=== PATIENT | male | born 1990 | race Caucasian/White ===

== ENCOUNTER 2022-06-18 10:16 | Emergency (ER) | payer SELFPAY ==
[2022-06-18 10:27] VITALS: BP 140/103; PULSE 98; RESP 21; TEMP 36.3; O2SAT 98
[2022-06-18 10:41] LABS: Basophils Absolute Auto 0.1 K/mm3 (0.0-0.1); Basophils Percent Auto 1.1 % (0.2-1.2); Eosinophils Absolute Auto 0.2 K/mm3 (0-0.3); Eosinophils Percent Auto 2.2 % (0-4.4); Hematocrit 47.5 % (42.0-52.0); Hemoglobin 16.6 g/dL (14.0-18.0); Immature Granulocyte Absolute 0.02 K/mm3 (0.00-0.031); Immature Granulocyte Percent A 0.2 % (0-0.5); Lymphocytes Percent Auto 50.8 % (18.3-44.2); Mean Corpuscular HGB Conc 34.9 g/dl (32-36); Mean Corpuscular Hemoglobin 32.9 pg (26-34); Mean Corpuscular Volume 94.2 fl (80-100); Mean Platelet Volume 9.2 fl (7.4-10.4); Monocytes Absolute Auto 0.5 K/mm3 (0.1-0.6); Monocytes Percent Auto 6.3 % (2.6-8.5); Neutrophils Absolute Auto 3.3 K/mm3 (1.3-6.7); Neutrophils Percent Auto 39.4 % (45.5-73.1); Platelet Count Result 234 k/mm3 (150-375); Red Blood Count 5.04 M/mm3 (4.6-6.20); Red Cell Distribution Width 12.3 % (11.5-14.5); White Blood Count 8.3 K/mm3 (4.5-10.0)
[2022-06-18 10:53] LABS: Alanine Aminotransferase 56 U/L (6-50); Albumin Level 4.5 g/dL (3.5-5.1); Alkaline Phosphatase 57 U/L (38-126); Anion Gap 10 mmol/L (8-16); Aspartate Amino Transferase 54 U/L (17-59); Bilirubin,Total 0.5 mg/dL (0.2-1.3); Blood Urea Nitrogen 11 mg/dL (9-20); Calcium 8.5 mg/dL (8.4-10.2); Carbon Dioxide 26 mmol/L (22-30); Chloride 103 mmol/L (98-107); Estimated CRCL calculation 145 ml/min; Estimated Glomerular Filt Rate > 60; Glucose 103 mg/dL (65-110); Potassium 3.5 mmol/L (3.4-5.0); Sodium 139 mmol/L (137-145)
[2022-06-18 11:06] LABS: Strep Group A RT-PCR NOT DETECTED (Negative)
[2022-06-18 11:20] LABS: Influenza A QL RT-PCR Negative (Negative); Influenza B QL RT-PCR Negative (Negative); SARS-CoV-2 RNA PCR Negative (Negative)
[2022-06-18 11:55] VITALS: BP 115/64; PULSE 84; RESP 16; O2SAT 98
--- NOTE | 2022-06-18 14:04 | ED.GENADULT ---
HPI - General Adult General Chief complaint: Allergic Reaction Stated complaint: allergic reaction, states throat is closing Time Seen by Provider: 06/18/22 10:19 History of Present Illness HPI narrative: Patient is a 31-year-old male who presents ER with concerns for allergic reaction. Woke up this morning has difficulty breathing and swallowing. He has an irritation back of his throat. Patient does not take any medications. Denies any new food exposures. No runny nose or sore throat or cough. No wheezing. No new rash. Related Data Allergies Allergy/AdvReac Type Severity Reaction Status Date / Time Penicillins Allergy Unknown Verified 06/18/22 11:55 Review of Systems Constitutional: Constitutional: Denies chills, Denies fatigue and Denies fever(s) ENT: Reports dysphagia, Denies nasal congestion and Reports sore throat Respiratory: Respiratory: Denies cough and Denies dyspnea Gastrointestinal: Gastrointestinal: Denies abdominal pain, Denies nausea and Reports vomiting PMFSH Past Medical History Medical History (Updated 06/18/22 @ 20:13 by Marquez Loaiza MD) Healthy adult male Surgical History Surgical History (Updated 06/18/22 @ 20:13 by Marquez Loaiza MD) No history of previous surgery Exam Narrative: GENERAL: Well-appearing, well-nourished, and in no acute distress. HEAD: Normocephalic, atraumatic. EYES: PERRL and EOMI. ENT: Mucous membranes moist. Uvula edematous. Tonsils normal in appearance without hypertrophy or exudate. No uvular shift. CHEST: Clear to auscultation. No respiratory distress. HEART: Regular rate and rhythm. Normal peripheral pulses.. EXTREMITIES: Normal range of motion. No edema. SKIN: Warm, dry, no rash. NEURO: Alert and oriented x3. PSYCH: Normal mood and affect. Course Course Emergency Course: Uvula reducing in size after Decadron. Educated on uvulitis. Discharge home. Vital Signs Vital signs: Vital Signs Temperature 97.4 F L 06/18/22 10:27 Pulse Rate 98 06/18/22 10:27 Respiratory Rate 21 H 06/18/22 10:27 Blood Pressure 140/103 H 06/18/22 10:27 Pulse Oximetry 98 06/18/22 10:27 Temperature 97.4 F L 06/18/22 10:27 Pulse Rate 91 06/18/22 14:14 Respiratory Rate 16 06/18/22 14:14 Blood Pressure 106/71 06/18/22 14:14 Pulse Oximetry 98 06/18/22 14:14 Medical Decision Making Vital Signs Vital Signs: Vital Signs Temperature 97.4 F L 06/18/22 10:27 Pulse Rate 98 06/18/22 10:27 Respiratory Rate 21 H 06/18/22 10:27 Blood Pressure 140/103 H 06/18/22 10:27 Pulse Oximetry 98 06/18/22 10:27 Temperature 97.4 F L 06/18/22 10:27 Pulse Rate 91 06/18/22 14:14 Respiratory Rate 16 06/18/22 14:14 Blood Pressure 106/71 06/18/22 14:14 Pulse Oximetry 98 06/18/22 14:14 Lab Data 06/18/22 10:34 06/18/22 10:34 Labs: Lab Results 06/18/22 06/18/22 06/18/22 Range/Units 10:34 10:34 10:34 WBC 8.3 (4.5-10.0) K/mm3 RBC 5.04 (4.6-6.20) M/mm3 Hgb 16.6 (14.0-18.0) g/dL Hct 47.5 (42.0-52.0) % MCV 94.2 (80-100) fl MCH 32.9 (26-34) pg MCHC 34.9 (32-36) g/dl RDW 12.3 (11.5-14.5) % Plt Count 234 (150-375) k/mm3 MPV 9.2 (7.4-10.4) fl Immature Gran % (Auto) 0.2 (0-0.5) % Neut % (Auto) 39.4 L (45.5-73.1) % Lymph % (Auto) 50.8 H (18.3-44.2) % [place] % (Auto) 6.3 (2.6-8.5) % Eos % (Auto) 2.2 (0-4.4) % Baso % (Auto) 1.1 (0.2-1.2) % Lymph # (Auto) 4.20 H (0.9-3.2) K/mm3 [place] # (Auto) 0.5 (0.1-0.6) K/mm3 Eos # (Auto) 0.2 (0-0.3) K/mm3 Baso # (Auto) 0.1 (0.0-0.1) K/mm3 Abs Immat Gran (auto) 0.02 (0.00-0.031) K/mm3 Absolute Neuts (auto) 3.3 (1.3-6.7) K/mm3 Absolute Nucleated RBC 0.0 (0.0-0.012) K/mm3 Nucleated RBC % 0.0 (0.0-0.2) % Sodium (137-145) mmol/L Potassium (3.4-5.0) mmol/L Chloride (98-107) mmol/L Carbon Dioxide (22-30) mmol/L Anion
[2022-06-18 14:14] VITALS: BP 106/71; PULSE 91; RESP 16; O2SAT 98
== END 2022-06-18 14:15 | disposition home or self-care (01) ==
PROVIDERS: Emergency Provider Emergency Medicine
DX: K12.2 Cellulitis and abscess of mouth (principal); Z20.822 Contact with and (suspected) exposure to COVID-19
CPT/HCPCS: 36415; 80053; 85025; 87636; 87651; 96374; 99284; J1100

== ENCOUNTER 2023-01-19 18:28 | Emergency (ER) | payer MEDICAID, SELFPAY ==
--- NOTE | ~2023-01-19 | XR_ITS ---
EXAMINATION: XR chest 1V portable INDICATION: Shortness of breath TECHNIQUE: Portable AP chest at 2219 hours COMPARISON: None available FINDINGS: The lungs are free of acute opacities. No pleural effusion or pneumothorax. The cardiomedia stinal silhouette is normal. There are old fractures of the posterior right ninth and 10th ribs. IMPRESSION: 1. No acute cardiopulmonary abnormality. Reviewed, dictated and finalized at location [facility]. [facility] [employer]
[2023-01-19 18:29] VITALS: BP 134/78; PULSE 99; RESP 16; TEMP 36.2; O2SAT 99
--- NOTE | 2023-01-19 18:32 | ECG_ITS ---
Measurements Intervals [place] Rate: 98 P: 84 IL: 169 QRS: -2 QRSD: 100 T: 48 QT: 342 QTc: 438 Interpretive Statements SINUS RHYTHM INCOMPLETE RIGHT BUNDLE BRANCH BLOCK BASELINE ARTIFACT- II, III, AVL BORDERLINE ECG NO PREVIOUS ECG AVAILABLE FOR COMPARISON Electronically Signed On 01-19-2023 19:21:16 [employer]IC [employer]UCATION ADJ[employer]CT PROFESSOR by Mirza Roberts D.O.
[2023-01-19 21:26] VITALS: BP 129/91; PULSE 80; RESP 16; O2SAT 99
[2023-01-19] MEDS: SODIUM CHLORIDE 0.9% IV 1,000 ML 999 ML IV CONT (22:49)
[2023-01-19] MEDS: FAMOTIDINE 20 MG/2 ML VIAL IV PUSH (22:50)
[2023-01-19 22:56] LABS: Basophils Absolute Auto 0.1 K/mm3 (0.0-0.1); Basophils Percent Auto 0.9 % (0.2-1.2); Eosinophils Absolute Auto 0.1 K/mm3 (0-0.3); Eosinophils Percent Auto 1.3 % (0-4.4); Hematocrit 50.1 % (42.0-52.0); Hemoglobin 17.3 g/dL (14.0-18.0); Immature Granulocyte Absolute 0.02 K/mm3 (0.00-0.031); Immature Granulocyte Percent A 0.3 % (0-0.5); Lymphocytes Absolute Auto 2.78 K/mm3 (0.9-3.2); Lymphocytes Percent Auto 35.3 % (18.3-44.2); Mean Corpuscular HGB Conc 34.5 g/dl (32-36); Mean Corpuscular Hemoglobin 31.6 pg (26-34); Mean Corpuscular Volume 91.4 fl (80-100); Mean Platelet Volume 9.8 fl (7.4-10.4); Monocytes Absolute Auto 0.5 K/mm3 (0.1-0.6); Monocytes Percent Auto 6.9 % (2.6-8.5); Neutrophils Absolute Auto 4.4 K/mm3 (1.3-6.7); Neutrophils Percent Auto 55.3 % (45.5-73.1); Platelet Count Result 253 k/mm3 (150-375); Red Blood Count 5.48 M/mm3 (4.6-6.20); Red Cell Distribution Width 12.8 % (11.5-14.5); White Blood Count 7.9 K/mm3 (4.5-10.0)
[2023-01-19 22:57] VITALS: PULSE 76; O2SAT 98
--- NOTE | 2023-01-19 23:08 | PC.NURSE ---
This RN spoke with EDP Dr. Case for a verbal order of zofran due to c/o of nausea. EDP Dr. Case ordered 8mg zofran for patient. This RN used closed loop communication to order 8mg of zofran for this patient with confirmation of route, administration, dose, and patient.
[2023-01-19 23:12] LABS: INR 0.9; Prothrombin Time 12.6 Seconds (11.1-14.7)
[2023-01-19 23:12] LABS: Ethanol < 10 mg/dL (<10); Lactic Acid Reflex 1.3 mmol/L (0.7-2.0)
--- NOTE | 2023-01-19 23:19 | PC.NURSE ---
Per EDP Dr. Case, this RN changed the rate of the thiamine mixed bag to a 999mls/ hour per EDP Dr. Case. This RN used closed loop communication to confirm rate change. EDP Dr. Case confirmed.
[2023-01-19] MEDS: ONDANSETRON INJ 4 MG/2 ML VIAL 8 MG IV PUSH (23:26)
[2023-01-19 23:32] LABS: Influenza A QL RT-PCR Negative (Negative); Influenza B QL RT-PCR Negative (Negative); RSV RNA, RT-PCR Negative (Negative); SARS-CoV-2 RNA PCR Negative (Negative)
[2023-01-19 23:36] LABS: Troponin I < 0.012 ng/mL (0.000-0.034)
[2023-01-19 23:44] LABS: Alanine Aminotransferase 202 U/L (6-50); Albumin Level 4.7 g/dL (3.5-5.1); Alkaline Phosphatase 61 U/L (38-126); Anion Gap 10 mmol/L (8-16); Aspartate Amino Transferase 194 U/L (17-59); Bilirubin,Total 1.4 mg/dL (0.2-1.3); Blood Urea Nitrogen 10 mg/dL (9-20); Calcium 9.7 mg/dL (8.4-10.2); Carbon Dioxide 27 mmol/L (22-30); Chloride 100 mmol/L (98-107); Estimated CRCL calculation 146 ml/min; Estimated Glomerular Filt Rate > 60; Glucose 118 mg/dL (65-110); Lipase 77 U/L (23-300); Magnesium 2.1 mg/dL (1.6-2.3); NT Pro B Type Natriuretic Pept < 20 pg/mL (19.9-100); Phosphorus 3.7 mg/dL (2.5-4.5); Potassium 3.5 mmol/L (3.4-5.0); Sodium 137 mmol/L (137-145)
[2023-01-20 00:40] LABS: Creatine Kinase 72 U/L (55-170)
--- NOTE | 2023-01-20 01:07 | ED.GENADULT ---
HPI - General Adult General Chief complaint: Syncope Stated complaint: syncopy Time Seen by Provider: 01/19/23 21:47 History of Present Illness HPI narrative: this is a 32-year-old male presenting ED with chief complaint of syncope. Patient says he has not been feeling well for the last 2 weeks. this is included periods of feeling warm and diaphoretic that was typically resolves on its own. He has also had some palpitations and chest discomfort. He has had epigastric discomfort, nausea vomiting. Earlier today he was not feeling well and had not eaten throughout the day. When he got out of his car he had a syncopal event and collapsed. Patient says he drinks daily. He does not know the last time he has gone without drinking. He denies withdrawal symptoms. Related Data Allergies Allergy/AdvReac Type Severity Reaction Status Date / Time No Known Allergies Allergy Verified 01/19/23 22:48 [facility] Past Medical History Medical History (Updated 01/20/23 @ 01:17 by Reji Case MD) EtOH dependence Healthy adult male Surgical History Surgical History No history of previous surgery Exam Narrative: APPEARANCE: No apparent distress. Head: atraumatic. EYES: EOMI, NOSE: Atraumatic NECK: Trachea midline RESPIRATORY: No increased rate of breathing , clear to auscultation CARDIOVASCULAR: RRR, ABDOMINAL: tenderness to palpation epigastric and right upper quadrant without guarding or rebound. MUSCULOSKELETAl: No obvious deformities NEURO: Alert. Moving 4/4 extremities SKIN:: Warm, dry. Normal color PSYCHIATRIC: Normal affect Course Vital Signs Vital signs: Vital Signs Temperature 97.2 F L 01/19/23 18:29 Pulse Rate 99 01/19/23 18:29 Respiratory Rate 16 01/19/23 18:29 Blood Pressure 134/78 01/19/23 18:29 Pulse Oximetry 99 01/19/23 18:29 Temperature 97.2 F L 01/19/23 18:29 Pulse Rate 76 01/19/23 22:57 Respiratory Rate 16 01/19/23 21:26 Blood Pressure 129/91 H 01/19/23 21:26 Pulse Oximetry 98 01/19/23 22:57 Oxygen Delivery Room Air 01/19/23 22:57 Medical Decision Making [facility] Narrative Medical decision making narrative: -Course: 32-year-old male presenting with 2 weeks of hot flashes, chest discomfort, nausea/vomiting and then an episode of syncope today. Patient does not eat a large amount of food due to his abdominal discomfort. He does drink on a daily basis. His workup here was significant for elevations in his liver enzymes but no other findings. Point of care right upper quadrant ultrasound did not reveal any thickening of gallbladder wall and pericholecystic fluid. Given the patient's timeline of several weeks of discomfort less likely that he has acute cholecystitis. suspect combination alcohol dependence , alcoholic gastritis, an alcoholic hepatitis. patient is offered resources on alcohol cessation he does not believe that is his problem. Patient discharged w/ primary care follow-up for outpatient evaluation of his symptoms. 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 CMP showed elevations in liver enzymes. troponin, BNP undetectable. Alcohol level negative. Chest x-ray unremarkable. Independent EKG interpretation: Rhythm [sinus], Rate [98], [place] -[normal], [place] -[normal], QRS [narrow], QTC [normal], T waves -[negative for concerning inversions], ST Segments - [Negative for concerning elevations] Final interpretations: [Normal Sinus Rhythm] -Interventions: banana bag, Pepcid, Zofran -Shared decision making / Disposition: discharged primary ca
[2023-01-20 01:42] VITALS: PULSE 91; RESP 17
[2023-01-20 01:49] VITALS: BP 133/97; PULSE 86; RESP 18; O2SAT 98
== END 2023-01-20 01:50 | disposition home or self-care (01) ==
PROVIDERS: Emergency Provider Emergency Medicine
DX: R55 Syncope and collapse (principal); E86.0 Dehydration; F10.20 Alcohol dependence, uncomplicated; Y90.0 Blood alcohol level of less than 20 mg/100 ml; Z20.822 Contact with and (suspected) exposure to COVID-19; I45.10 Unspecified right bundle-branch block
CPT/HCPCS: 36415; 71045; 80053; 80307; 82550; 83605; 83690; 83735; 83880; 84100; 84443; 84484; 85025; 85610; 85730; 87637; 93005; 96365; 96366; 96375; 99284; J2405; J3411; J3475; J7030; J7121

== ENCOUNTER 2023-05-28 11:56 | Emergency (ER) | payer BC, SELFPAY ==
[2023-05-28] VITALS (27 sets, daily range): BP systolic 121–142; BP diastolic 85–94; PULSE 74–78; RESP 16–20; TEMP 36.6; O2SAT 90–100
--- NOTE | ~2023-05-28 | CT_ITS ---
EXAMINATION: CT abdomen pelvis w con DATE: 05/28/2023 14:06 INDICATION: Right flank pain. Hematuria. Nausea. Diarrhea. TECHNIQUE: Computed tomography (CT) of the abdomen and pelvis was performed with 100 CC Omnipaque 350 intravenous contrast. Automated exposure control and iterative reconstruction technique were employe d. Exam dose: 373.62 mGy-cm total exam DLP. COMPARISON: None. FINDINGS: The lung bases are clear of infiltrate or consolidation. Normal heart size. No pericardial or pleural effusion. Diffuse hepatic steatosis. No hepatic, splenic, pancreatic, and adrenal or renal space-occupying mass lesion is detected. No bile duct or pancreatic duct dilatation. Gallbladder appears unremarkable. No urinary tract calculus or hydroureteronephrosis. The urinary bladder and prostate gland appear unr emarkable. Normal caliber of the abdominal aorta. No intraperitoneal or retroperitoneal or pelvic mass lesion or adenopathy or ascites. A few diverticula of the left colon are noted; no CT evidence of diverticulitis. No evidence of appen dicitis. No bowel obstruction, bowel wall thickening, pneumatosis or intraperitoneal free air is dete cted. Multiple fat-containing umbilical hernia. No suspicious osteolytic or osteoblastic lesions. IMPRESSION: No urinary tract calculus or hydroureteronephrosis Hepatic steatosis Minimal left colon diverticulosis; no CT evidence of diverticulitis Reviewed, dictated and finalized at [facility]. Reviewed, dictated and finalized at location [facility].
--- NOTE | 2023-05-28 12:19 | ED.BACK ---
HPI - Back Pain/Injury General Chief Complaint: Back Pain/Injury Stated Complaint: kidney pain Time Seen by Provider: 05/28/23 12:20 Focused HPI: Orestes is a 32-year-old male patient presenting to the emergency room today with complaints of to the low back with more right-sided flank and right abdomen pain. Reports that he did have blood in his urine. Denies any fever or chills, or urinary symptoms. Does have nausea and diarrhea. No history of kidney stones in the past. Denies any testicle pain however states when he was having intercourse with his significant other 1 week ago there was a different feeling. No concern for STIs. States pain is constant-dull rates it 5/10 currently. Drinks 2-4 oz of whiskey per night. General: Well-developed, well nourished, in no apparent distress. Head: Normocephalic, atraumatic. Cardio: Regular rate and rhythm, s1 and s2 normal, no murmur appreciated. Resp: Clear to auscultation bilaterally, no rhonchi, rales, wheezing or rubs. Abdomen: Soft, pliable, bowel sounds present in all quadrants, tender to palpation, no organomegly, bilateral CVAT tenderness. Patient screened in triage and initial orders placed. Additional care and disposition to be based upon diagnostic testing and treatment. Source: patient Mode of arrival: ambulatory Limitations: no limitations Related Data Allergies Allergy/AdvReac Type Severity Reaction Status Date / Time No Known Allergies Allergy Verified 01/19/23 22:48 PMFSH Past Medical History Medical History EtOH dependence Healthy adult male Surgical History Surgical History No history of previous surgery Comments At the time of my signature, I reviewed and agree with the nursing past medical, surgical, social, and family history. There is no relevant family history pertinent to the patient complaint. Course Course Emergency Course: Portions of this record may have been created with voice recognition software. Vital Signs Vital signs: Vital Signs Temperature 36.6 C 05/28/23 12:02 Pulse Rate 76 05/28/23 12:02 Respiratory Rate 20 05/28/23 12:02 Blood Pressure 142/87 H 05/28/23 12:02 Pulse Oximetry 99 05/28/23 12:02 Oxygen Delivery Room Air 05/28/23 12:02 Temperature 36.6 C 05/28/23 12:02 Pulse Rate 74 05/28/23 16:31 Respiratory Rate 18 05/28/23 18:35 Blood Pressure 134/88 05/28/23 16:31 Pulse Oximetry 95 05/28/23 16:45 Oxygen Delivery Room Air 05/28/23 12:02 Vital signs reviewed MDM - Back Pain/Injury Lab Data 05/28/23 12:30 05/28/23 12:30 Labs: Lab Results 05/28/23 05/28/23 Range/Units 12:30 12:34 WBC 9.3 (4.5-10.0) K/mm3 RBC 5.77 (4.6-6.20) M/mm3 Hgb 18.3 H (14.0-18.0) g/dL Hct 54.7 H (42.0-52.0) % MCV 94.8 (80-100) fl MCH 31.7 (26-34) pg MCHC 33.5 (32-36) g/dl RDW 11.5 (11.5-14.5) % Plt Count 351 (150-375) k/mm3 MPV 9.7 (7.4-10.4) fl Immature Gran % (Auto) 0.3 (0-0.5) % Neut % (Auto) 74.9 H (45.5-73.1) % Lymph % (Auto) 18.5 (18.3-44.2) % [place] % (Auto) 5.6 (2.6-8.5) % Eos % (Auto) 0.1 (0-4.4) % Baso % (Auto) 0.6 (0.2-1.2) % Lymph # (Auto) 1.72 (0.9-3.2) K/mm3 [place] # (Auto) 0.5 (0.1-0.6) K/mm3 Eos # (Auto) 0.0 (0-0.3) K/mm3 Baso # (Auto) 0.1 (0.0-0.1) K/mm3 Abs Immat Gran (auto) 0.03 (0.00-0.031) K/mm3 Absolute Neuts (auto) 7.0 H (1.3-6.7) K/mm3 Absolute Nucleated RBC 0.000 (0.0-0.012) K/mm3 Nucleated RBC % 0.0 (0.0-0.2) % Sodium 140 (137-145) mmol/L Potassium 4.2 (3.4-5.0) mmol/L Chloride 103 (98-107) mmol/L Carbon Dioxide 30 (22-30) mmol/L Anion Gap 7 L (4-12) mmol/L BUN 10 (9-20) mg/dL Creatinine 0.90 (0.7-1.3) mg/dL Estim Creat Clear Calc 116 ml/min Estimated GFR > 60 (59 - ) Glucose 101 (65-110) mg/dL Calcium
[2023-05-28 13:12] LABS: Appearance Urine Clear (Clear); Bacteria Urine None Seen /hpf; Bilirubin Urine 1+ (Negative); Blood Urine 1+ (Negative); Color Urine Dark Yellow (Yellow); Glucose Urine UA Negative (Negative); Ketones Urine Trace mg/dL (Negative); Leukocyte Esterase Ur Negative LEU/UL (Negative); Nitrate Urine Negative (Negative); Non Pathogenic Casts 0-2; Protein Urine 2+ mg/dL (Negative); Squamous Epithelial Cell Urine None Seen /hpf (Few); WBC Urine 0-5 /hpf (0-3); pH Urine 7.5 (5.0-9.0)
[2023-05-28 13:16] LABS: Add Urine Microscopic? YES; Specific Grav Ur 1.031 (1.001-1.035)
[2023-05-28 13:19] LABS: Basophils Absolute Auto 0.1 K/mm3 (0.0-0.1); Basophils Percent Auto 0.6 % (0.2-1.2); Eosinophils Percent Auto 0.1 % (0-4.4); Hematocrit 54.7 % (42.0-52.0); Hemoglobin 18.3 g/dL (14.0-18.0); Immature Granulocyte Absolute 0.03 K/mm3 (0.00-0.031); Immature Granulocyte Percent A 0.3 % (0-0.5); Lymphocytes Absolute Auto 1.72 K/mm3 (0.9-3.2); Lymphocytes Percent Auto 18.5 % (18.3-44.2); Mean Corpuscular HGB Conc 33.5 g/dl (32-36); Mean Corpuscular Hemoglobin 31.7 pg (26-34); Mean Corpuscular Volume 94.8 fl (80-100); Mean Platelet Volume 9.7 fl (7.4-10.4); Monocytes Absolute Auto 0.5 K/mm3 (0.1-0.6); Monocytes Percent Auto 5.6 % (2.6-8.5); Neutrophils Percent Auto 74.9 % (45.5-73.1); Platelet Count Result 351 k/mm3 (150-375); Red Blood Count 5.77 M/mm3 (4.6-6.20); Red Cell Distribution Width 11.5 % (11.5-14.5); White Blood Count 9.3 K/mm3 (4.5-10.0)
[2023-05-28 13:42] LABS: Alanine Aminotransferase 68 U/L (6-50); Alkaline Phosphatase 65 U/L (38-126); Anion Gap 7 mmol/L (4-12); Aspartate Amino Transferase 69 U/L (17-59); Bilirubin,Total 1.1 mg/dL (0.2-1.3); Blood Urea Nitrogen 10 mg/dL (9-20); Calcium 9.6 mg/dL (8.4-10.2); Carbon Dioxide 30 mmol/L (22-30); Chloride 103 mmol/L (98-107); Estimated CRCL calculation 116 ml/min; Estimated Glomerular Filt Rate > 60; Glucose 101 mg/dL (65-110); Lipase 39 U/L (23-300); Potassium 4.2 mmol/L (3.4-5.0); Sodium 140 mmol/L (137-145)
--- NOTE | 2023-05-28 13:49 | PC.NURSE ---
This RN in agreement with assessment and charting of SN Kareem.
--- NOTE | 2023-05-28 13:54 | ED.BACK ---
HPI - Back Pain/Injury General Chief Complaint: Back Pain/Injury Stated Complaint: kidney pain Time Seen by Provider: 05/28/23 12:20 Source: patient Mode of arrival: ambulatory Limitations: no limitations History of Present Illness HPI Narrative: 32 years old white male came to the ED by private car complaining of flank pain bilaterally mainly right area radiating to the groin area bilaterally. Started 1 week ago. Associated with nausea, vomiting for the last 2 days. Patient denies history of abdominal surgery, does not take medicine at home, he does vape, smoke marijuana and drink alcohol occasionally. Patient denies aggravating or relieving factors. Patient reported that the pain is dull aching steady with intermittent flare-up Related Data Allergies Allergy/AdvReac Type Severity Reaction Status Date / Time No Known Allergies Allergy Verified 01/19/23 22:48 Review of Systems Review of Systems: All systems reviewed & are unremarkable except as noted in HPI and below PMFSH Past Medical History Medical History EtOH dependence Healthy adult male Surgical History Surgical History No history of previous surgery Exam Narrative: General appearance: Well-developed, well-nourished Skin: Normal color Head: Normocephalic, nontraumatic Eyes: Clear conjunctiva ENT: Oropharynx normal, ears normal, nose normal Neck: Supple, nontender Chest and respiratory: Airway patent, no respiratory distress, no accessory muscle use Heart: Regular rate/rhythm Abdomen: Soft, mild diffuse lower abdominal tenderness bilaterally, no guarding or rebound, no rash, no bruises, no organomegaly no organomegaly, quiet bowel sounds Vascular: Normal peripheral pulses, normal capillary refill. Musculoskeletal: Normal range of motion, nontender back Neurologic: Alert and oriented ?3, HELP DESK ENGINEER is normal as tested, no gross motor deficit Course Vital Signs Vital signs: Vital Signs Temperature 36.6 C 05/28/23 12: Pulse Rate 76 05/28/23 12:02 Respiratory Rate 20 05/28/23 12:02 Blood Pressure 142/87 H 05/28/23 12:02 Pulse Oximetry 99 05/28/23 12:02 Oxygen Delivery Room Air 05/28/23 12:02 Temperature 36.6 C 05/28/23 12:02 Pulse Rate 74 05/28/23 16:31 Respiratory Rate 16 05/28/23 16:31 Blood Pressure 134/88 05/28/23 16:31 Pulse Oximetry 95 05/28/23 16:45 Oxygen Delivery Room Air 05/28/23 12:02 MDM - Back Pain/Injury MDM Narrative Medical decision making narrative: PATIENT CAME TO THE ED WITH ABDOMINAL PAIN MAINLY AT THE FLANK AREA BILATERALLY DIFFERENTIAL DIAGNOSIS INCLUDE URINARY TRACT INFECTION, KIDNEY STONE, CONSTIPATION, COLITIS, MUSCULOSKELETAL. BLOOD WORKUP TODAY SHOWED HEMOGLOBIN OF 18.3 CARDIA, HEMATOCRIT 54.7, ACCORDING TO PATIENT BLOOD WORKUP IN THE PAST THAT HIS HEMOGLOBIN AND HEMATOCRIT ARE INCREASING GRADUALLY OVER THE LAST FEW YEARS. ERYTHROCYTOSIS MY CONCERN. BLOOD WORKUP TODAY AND CT SCAN OF THE ABDOMEN AND PELVIS WITH IV CONTRAST AND URINALYSIS SHOWED NO ACUTE ABNORMALITY. DISCHARGED ON ASPIRIN, FOLLOW-UP WITH DR. ORTIZ Differential Diagnosis Differential diagnosis: Likely other ( ABOVE) Medical Records Attestation: I reviewed the patient's medical records. Lab Data Attestation: I reviewed the patient's lab results. 05/28/23 12:30 05/28/23 12:30 Labs: Lab Results 05/28/23 05/28/23 Range/Units 12:30 12:34 WBC 9.3 (4.5-10.0) K/mm3 RBC 5.77 (4.6-6.20) M/mm3 Hgb 18.3 H (14.0-18.0) g/dL Hct 54.7 H (42.0-52.0) % MCV 94.8 (80-100) fl MCH
[2023-05-28] MEDS: SODIUM CHLORIDE 0.9% IV 1,000 ML 999 ML IV CONT (14:13)
[2023-05-28] MEDS: HYDROmorphone HCL INJ (*CRX) 1 MG/ML SYR 0.5 MG IV PUSH (14:14)
[2023-05-28] MEDS: ONDANSETRON INJ 4 MG/2 ML VIAL IV PUSH (14:14)
== END 2023-05-28 18:35 | disposition home or self-care (01) ==
PROVIDERS: Nurse Practitioner Family; Emergency Provider Emergency Medicine; Referring Provider Emergency Medicine
DX: R10.9 Unspecified abdominal pain (principal); D75.1 Secondary polycythemia
CPT/HCPCS: 36415; 74177; 80053; 81001; 83690; 85025; 96361; 96374; 96375; 99284; J1170; J2405; J7030; Q9967

== ENCOUNTER 2023-06-20 15:18 | Emergency (ER) | payer BC, SELFPAY ==
--- NOTE | ~2023-06-20 | CT_ITS ---
EXAMINATION: CT abdomen pelvis w con DATE: 06/20/2023 18:37 INDICATION: Hematuria. Abdominal pain. Flank pain. TECHNIQUE: Computed tomography (CT) of the abdomen and pelvis was performed with 100 mL Omnipaque 350 intravenous contrast. Automated exposure control and iterative reconstruction technique were employe d. The dose-length product was 479.82 mGy-cm. COMPARISON: CT abdomen and pelvis 05/28/2023 FINDINGS: The visualized portions of the lung bases demonstrate mild atelectasis. No pleural effusion . The heart size is normal. No pericardial effusion. There is diffuse hepatic steatosis. The gallblad maribel, spleen, pancreas, adrenal glands, and kidneys are normal. The prostate is mildly enlarged. There is diverticulosis of the colon without evidence of diverticulitis. There are no dilated loops of bow el. The appendix is normal. There are no pathologically enlarged lymph nodes. There is no free intrap eritoneal fluid. There is an umbilical hernia containing fat. There is mild lumbar spondylosis. IMPRESSION: 1. Umbilical hernia containing fat. 2. Diffuse hepatic steatosis. Reviewed, dictated and finalized at location [facility].
[2023-06-20 15:29] VITALS: BP 129/88; PULSE 86; RESP 18; TEMP 36.4; O2SAT 99
[2023-06-20 16:02] LABS: Basophils Absolute Auto 0.1 K/mm3 (0.0-0.1); Basophils Percent Auto 1.1 % (0.2-1.2); Eosinophils Absolute Auto 0.1 K/mm3 (0-0.3); Eosinophils Percent Auto 1.2 % (0-4.4); Hematocrit 51.1 % (42.0-52.0); Hemoglobin 18.1 g/dL (14.0-18.0); Immature Granulocyte Absolute 0.02 K/mm3 (0.00-0.031); Immature Granulocyte Percent A 0.2 % (0-0.5); Lymphocytes Absolute Auto 1.98 K/mm3 (0.9-3.2); Lymphocytes Percent Auto 24.6 % (18.3-44.2); Mean Corpuscular HGB Conc 35.4 g/dl (32-36); Mean Corpuscular Hemoglobin 31.5 pg (26-34); Mean Corpuscular Volume 88.9 fl (80-100); Mean Platelet Volume 9.2 fl (7.4-10.4); Monocytes Absolute Auto 0.5 K/mm3 (0.1-0.6); Monocytes Percent Auto 6.2 % (2.6-8.5); Neutrophils Absolute Auto 5.4 K/mm3 (1.3-6.7); Neutrophils Percent Auto 66.7 % (45.5-73.1); Platelet Count Result 283 k/mm3 (150-375); Red Blood Count 5.75 M/mm3 (4.6-6.20); Red Cell Distribution Width 11.4 % (11.5-14.5)
[2023-06-20 16:13] LABS: Alanine Aminotransferase 117 U/L (6-50); Albumin Level 5.7 g/dL (3.5-5.1); Alkaline Phosphatase 72 U/L (38-126); Anion Gap 16 mmol/L (4-12); Aspartate Amino Transferase 138 U/L (17-59); Blood Urea Nitrogen 14 mg/dL (9-20); Calcium 10.1 mg/dL (8.4-10.2); Carbon Dioxide 21 mmol/L (22-30); Chloride 102 mmol/L (98-107); Estimated CRCL calculation 116 ml/min; Estimated Glomerular Filt Rate > 60; Glucose 107 mg/dL (65-110); Sodium 139 mmol/L (137-145)
[2023-06-20 17:06] LABS: Appearance Urine Cloudy (Clear); Bilirubin Urine 2+ (Negative); Blood Urine 3+ (Negative); Color Urine Dark Yellow (Yellow); Glucose Urine UA Negative (Negative); Ketones Urine 3+ mg/dL (Negative); Leukocyte Esterase Ur 1+ LEU/UL (Negative); Nitrate Urine Positive (Negative); Protein Urine 3+ mg/dL (Negative); pH Urine 5.5 (5.0-9.0)
[2023-06-20 17:08] LABS: Bacteria Urine None Seen /hpf; RBC Urine 51-100 /hpf (0-2); Squamous Epithelial Cell Urine Few /hpf (Few); WBC Urine 0-5 /hpf (0-3)
[2023-06-20 17:10] LABS: Need Manual Microscopic Reviewed
[2023-06-20 17:17] LABS: Specific Grav Ur 1.037 (1.001-1.035)
[2023-06-20 17:21] LABS: Add Urine Microscopic? YES
--- NOTE | 2023-06-20 18:19 | ED.MALEGU ---
HPI - Male Genitourinary General Chief complaint: Urogenital-Male <Rosemarie Bellamy PA-C - Last Filed: 06/20/23 21:12> Stated complaint: kidney problems <Rosemarie Bellamy PA-C - Last Filed: 06/20/23 21:12> Time Seen by Provider: 06/20/23 17:18 <Rosemarie Bellamy PA-C - Last Filed: 06/20/23 21:12> History of Present Illness HPI Narrative: 32-year-old male with a reported history of ETOH abuse presents to the emergency department for hematuria, bilateral flank pain and abdominal pain for approximately 2 weeks. Patient was seen in our emergency department for the same symptoms on 05/28/2023. Findings at that time were concerning for erythrocytosis. Otherwise blood work and CT scan of the abdomen and pelvis with IV contrast showed no acute abnormality. Patient was discharged home with oncology follow-up regarding or throw cytosis which he has been following closely, planning to do a bone marrow biopsy within the next few weeks. He is reporting today because he feels like the amount of hematuria and states his urine is very dark, his abdominal pain and flank pain has consistently worsened. He followed up with his PCP revised to come to the ED for further evaluation. He states it feels like he is ?sitting on top of my bladder? and ?someone is standing on a kidneys?. He denies history of kidney stones. He is reporting some urinary frequency and dysuria. He also states that he feels like he is not able to fully empty his bladder. He states he is sexually active with 1 partner and denies penile discharge or concern for STDs. He reports intermittent low-grade fevers around 99?, sweats and chills. Denies scrotal pain or swelling. Denies perineal or rectal pain. The patient is currently trying to wean himself off of alcohol. He has been drinking for multiple years. He has been weaning himself off of alcohol for the past 6 months. He took a shot of vodka today around 10:00 a.m.. States he normally takes a couple shots of vodka or whiskey per day at this point. He denies history of alcohol withdrawal, seizures, tremulousness or hallucinations. States he does not feel like he is in withdrawal right now. Reports marijuana use, denies other drug use. <Rosemarie Bellamy PA-C - Last Filed: 06/20/23 21:12> Related Data Allergies/Adverse reactions: Allergies Allergy/AdvReac Type Severity Reaction Status Date / Time No Known Allergies Allergy Verified 06/20/23 15:19 <Rosemarie Bellamy PA-C - Last Filed: 06/20/23 21:12> Review of Systems Review of Systems: CONSTITUTIONAL: See HPI EYES: Denies visual changes, redness, or discharge. ENT: Denies rhinorrhea, congestion, sore throat, or otalgia. CARDIOVASCULAR: Denies chest pain, palpitations, or edema. RESPIRATORY: Denies cough or dyspnea. GASTROINTESTINAL: See HPI GENITOURINARY: See HPI SKIN: Denies rash or itching. MUSCULOSKELETAL: Denies back pain, joint pain, or myalgia. NEUROLOGIC: Denies headache, numbness, or weakness. PSYCHIATRIC: Denies anxiety or depression. <Rosemarie Bellamy PA-C - Last Filed: 06/20/23 21:12> PMFSH Past Medical History Medical History: Medical History EtOH dependence Healthy adult male <Rosemarie Bellamy PA-C - Last Filed: 06/20/23 21:12> Surgical History Surgical History: Surgical History No history of previous surgery <Rosemarie Bellamy PA-C - Last Filed: 06/20/23 21:12> Exam Narrative: GENERAL: Well-appearing, well-nourished, and in no acute distress. HEAD: Normocephalic, atraumatic. EYES: PERRLA and EOMI. ENT: Nares clear, no rhinorrhea or epistaxis. Mucous membranes moist. NECK: Supple. CHEST: Clear to auscultation. No respiratory distress. HEART: Regular rate and rhythm. No murmur heard. Normal peripheral pulses. ABDOMEN: Normoactive bowel sounds. Abdomen soft with generali
[2023-06-20] MEDS: MORPHINE SULFATE (*CRX) 4 MG/ML INJ IV PUSH (18:23)
[2023-06-20] MEDS: SODIUM CHLORIDE 0.9% IV 1,000 ML 999 ML IV CONT (18:23)
[2023-06-20 18:52] VITALS: BP 140/93; PULSE 89; RESP 18; O2SAT 100
[2023-06-20 19:19] LABS: Lipase 119 U/L (23-300)
[2023-06-20 19:21] LABS: Lactic Acid Reflex 1.3 mmol/L (0.7-2.0)
--- NOTE | 2023-06-20 19:29 | ECG_ITS ---
SEE SCANNED COPY FOR CONFIRMED REPORT MTDD
[2023-06-20] MEDS: LACTATED RINGERS 1,000 ML 999 ML IV CONT (19:36)
[2023-06-20] MEDS: KETOROLAC 15 MG/ML VIAL (*BKC) IV PUSH (19:37)
[2023-06-20] MEDS: THIAMINE HCL 200 MG/2 ML VIAL 100 MG IV PUSH (19:37)
[2023-06-20 19:44] LABS: Creatine Kinase 71 U/L (55-170); Magnesium 2.8 mg/dL (1.6-2.3)
[2023-06-20 19:48] LABS: Prothrombin Time 13.2 Seconds (11.1-14.7)
[2023-06-20 19:49] LABS: Partial Thromboplastin Time 27.9 Seconds (22.3-36.8)
[2023-06-20] MEDS: HYDROmorphone HCL INJ (*CRX) 1 MG/ML SYR 0.5 MG IV PUSH (21:03)
[2023-06-20 21:05] VITALS: BP 129/73; PULSE 64; RESP 16; O2SAT 100
== END 2023-06-20 21:26 | disposition home or self-care (01) ==
PROVIDERS: Student in an Organized Health Care Education/Training Program; Emergency Provider Physician Assistant; PCP Physician Assistant
DX: R82.998 Other abnormal findings in urine (principal); R10.9 Unspecified abdominal pain; E78.5 Hyperlipidemia, unspecified; D75.1 Secondary polycythemia
CPT/HCPCS: 36415; 74177; 80053; 81001; 82550; 83605; 83690; 83735; 85025; 85610; 85730; 93005; 96361; 96365; 96375; 99284; J0696; J1170; J1885; J2270; J3411; J7030; J7120; Q9967

== ENCOUNTER 2023-07-08 18:55 | Emergency (ER) | payer BC, SELFPAY ==
[2023-07-08 18:56] VITALS: BP 135/94; PULSE 109; RESP 14; TEMP 36.6; O2SAT 98
--- NOTE | 2023-07-08 19:34 | ECG_ITS ---
SEE SCANNED COPY FOR CONFIRMED REPORT MTDD
--- NOTE | 2023-07-08 19:44 | ED.GENADULT ---
HPI - General Adult General Chief complaint: Syncope Stated complaint: syncopal episode, currently has blood cancer Time Seen by Provider: 07/08/23 19:18 History of Present Illness HPI narrative: This is a 32-year-old male with history of alcohol abuse and possibly polycythemia vera presenting with multiple complaints. Patient says for the last 2 months he has developed her right-sided flank and abdominal pain. Pain is sharp goes from his flank to his groin, associated nausea and vomiting after eating drinking. Patient has been seen in the ED multiple times for this has had multiple CT scans evaluated for kidney stone which were always negative. Patient is still drinking alcohol. He he is not taking anything for pain control. Related Data Allergies Allergy/AdvReac Type Severity Reaction Status Date / Time No Known Allergies Allergy Verified 06/20/23 15:19 [facility] Past Medical History Medical History EtOH dependence Healthy adult male Surgical History Surgical History No history of previous surgery Exam Narrative: APPEARANCE: Patient appears uncomfortable, disheveled Head: atraumatic. EYES: EOMI, NOSE: Atraumatic NECK: Trachea midline RESPIRATORY: No increased rate of breathing clear to auscultation CARDIOVASCULAR: Slightly tachycardic, no peripheral edema ABDOMINAL: Patient has right upper quadrant discomfort right flank pain. The rest the abdomen is soft MUSCULOSKELETAl: No obvious deformities NEURO: Alert. Moving 4/4 extremities SKIN:: Warm, dry. Normal color PSYCHIATRIC: Normal affect Course Vital Signs Vital signs: Vital Signs Temperature 97.8 F 07/08/23 18:56 Pulse Rate 109 H 07/08/23 18:56 Respiratory Rate 14 07/08/23 18:56 Blood Pressure 135/94 H 07/08/23 18:56 Pulse Oximetry 98 07/08/23 18:56 Oxygen Delivery Room Air 07/08/23 18:56 Temperature 97.8 F 07/08/23 18:56 Pulse Rate 85 07/08/23 20:45 Respiratory Rate 18 07/08/23 20:45 Blood Pressure 113/87 07/08/23 20:45 Pulse Oximetry 97 07/08/23 20:45 Oxygen Delivery Room Air 07/08/23 20:00 Medical Decision Making [facility] Narrative Medical decision making narrative: -Course: 32-year-old with a history of chronic alcohol abuse presenting with multiple complaints including flank pain and right upper quadrant pain. And workup for kidney stones multiple times in past which are always negative. Patient's symptoms are likely due to his alcohol abuse as opposed to any sort of kidney complaint for this diagnosis of polycythemia vera. Laboratory studies studies showed a normal hemoglobin today. Mild elevations in liver enzymes. Urine not indicative infection. Alcohol level 220. Spoke with patient at length about his symptoms likely due to his alcohol abuse. Patient is skeptical. d/c w/ pcp f/u. -DDX includes but is not limited to: Alcoholic hepatitis, alcoholic gastritis muscle strain, muscle spasm kidney infection -Co-morbidities complicating care: Alcohol abuse possibly polycythemia vera -Social determinants of health: Unemployed due to alcohol abuse, daily drinker -External Chart Review: Review of previous ER visits for identical presentation -Hx from independent Sources: Girlfriend at bedside -Independent interpretation of studies: Hemoglobin 17.2. Liver enzymes mildly elevated. Urine without evidence of infection. UDS positive for cannabinoids. Alcohol level 220. -Interventions: 2 L normal saline, Toradol, Valium -Shared decision making / Disposition:discharged. -RX Motrin, Tylenol Vital Signs Vital Signs: Vital Signs Temperature 97.8 F 07/08/23 18:56 Pulse Rate 109 H 07/08/23 18:56 Respiratory Rate 14 07/08/23 18:56 Blood Pressure 135/94 H 07/08/23 18:56 Pulse Oximetry 98 07/08/23 18:56 Oxygen Delivery Room Air 07/08/23 18:56 Temperature 97.8 F 0
[2023-07-08] MEDS: ACETAMINOPHEN 500 MG TABLET 1000 MG PO (19:45)
[2023-07-08] MEDS: SODIUM CHLORIDE 0.9% IV 2,000 ML 999 ML IV CONT (19:50)
[2023-07-08] MEDS: FAMOTIDINE 20 MG/2 ML VIAL IV PUSH (19:51)
[2023-07-08] MEDS: diazePAM INJ (*CRX) 10 MG/2 ML SYRINGE 5 MG IV PUSH (19:52)
[2023-07-08] MEDS: KETOROLAC 15 MG/ML VIAL (*BKC) IV PUSH (19:52)
[2023-07-08 19:58] VITALS: BP 119/92; PULSE 84; RESP 23; O2SAT 96
[2023-07-08 20:00] VITALS: O2SAT 97
[2023-07-08 20:01] VITALS: BP 116/93; PULSE 88; PULSE 95; RESP 20; O2SAT 94
[2023-07-08 20:17] LABS: Basophils Absolute Auto 0.1 K/mm3 (0.0-0.1); Basophils Percent Auto 1.4 % (0.2-1.2); Eosinophils Percent Auto 0.5 % (0-4.4); Hemoglobin 17.2 g/dL (14.0-18.0); Immature Granulocyte Absolute 0.01 K/mm3 (0.00-0.031); Immature Granulocyte Percent A 0.1 % (0-0.5); Lymphocytes Absolute Auto 3.21 K/mm3 (0.9-3.2); Lymphocytes Percent Auto 36.7 % (18.3-44.2); Mean Corpuscular HGB Conc 35.1 g/dl (32-36); Mean Corpuscular Volume 88.3 fl (80-100); Mean Platelet Volume 9.7 fl (7.4-10.4); Monocytes Absolute Auto 0.9 K/mm3 (0.1-0.6); Monocytes Percent Auto 10.6 % (2.6-8.5); Neutrophils Absolute Auto 4.4 K/mm3 (1.3-6.7); Neutrophils Percent Auto 50.7 % (45.5-73.1); Platelet Count Result 342 k/mm3 (150-375); Red Blood Count 5.55 M/mm3 (4.6-6.20); Red Cell Distribution Width 11.2 % (11.5-14.5); White Blood Count 8.7 K/mm3 (4.5-10.0)
[2023-07-08 20:26] LABS: Amphetamine Screen Urine Negative (Negative); Barbiturate Screen Urine Negative (Negative); Benzodiazepines Screen Urine Negative (Negative); Cannabinoid Screen Urine Positive (Negative); Cocaine Screen Urine Negative (Negative); Methadone Screen Urine Negative (Negative); Opiate Screen Urine Negative (Negative); Phencyclidine Screen Urine Negative (Negative)
[2023-07-08 20:28] LABS: Ethanol 219 mg/dL (<10)
[2023-07-08 20:30] LABS: Alanine Aminotransferase 70 U/L (6-50); Albumin Level 5.4 g/dL (3.5-5.1); Alkaline Phosphatase 52 U/L (38-126); Anion Gap 15 mmol/L (4-12); Aspartate Amino Transferase 61 U/L (17-59); Bilirubin,Total 0.6 mg/dL (0.2-1.3); Blood Urea Nitrogen 14 mg/dL (9-20); Calcium 9.8 mg/dL (8.4-10.2); Carbon Dioxide 23 mmol/L (22-30); Chloride 104 mmol/L (98-107); Estimated CRCL calculation 105 ml/min; Estimated Glomerular Filt Rate > 60; Glucose 85 mg/dL (65-110); Lipase 88 U/L (23-300); Potassium 3.6 mmol/L (3.4-5.0); Sodium 142 mmol/L (137-145)
[2023-07-08 20:45] VITALS: BP 113/87; PULSE 85; RESP 18; O2SAT 97
[2023-07-08 21:23] LABS: Appearance Urine Clear (Clear); Bacteria Urine None Seen /hpf; Bilirubin Urine Negative (Negative); Blood Urine 2+ (Negative); Color Urine Yellow (Yellow); Glucose Urine UA Negative (Negative); Ketones Urine Negative (Negative); Leukocyte Esterase Ur Negative LEU/UL (Negative); Need Manual Microscopic Reviewed; Nitrate Urine Negative (Negative); Non Pathogenic Casts 0-2; Protein Urine Trace mg/dL (Negative); Specific Grav Ur 1.006 (1.001-1.035); Squamous Epithelial Cell Urine None Seen /hpf (Few); Urobilinogen Urine 0.2 mg/dL (<2.0); WBC Urine 0-5 /hpf (0-3); pH Urine 6.5 (5.0-9.0)
[2023-07-08 21:25] LABS: Add Urine Microscopic? YES
[2023-07-08 21:48] VITALS: BP 112/87; PULSE 86; RESP 19; O2SAT 100
--- NOTE | 2023-07-26 13:16 | PC.NURSE ---
LATE ENTRY This note is being entered to document information to the patient's record. The following information was omitted on [07/08/23], by [Gaetano Valverde]. IV NS stopped at [id number]
== END 2023-07-08 21:49 | disposition home or self-care (01) ==
PROVIDERS: Emergency Provider Emergency Medicine; PCP Physician Assistant
DX: F10.20 Alcohol dependence, uncomplicated (principal); Y90.7 Blood alcohol level of 200-239 mg/100 ml
CPT/HCPCS: 36415; 80053; 80307; 81001; 83690; 85025; 93005; 96361; 96374; 96375; 99284; A9270; J1885; J3360; J7030

== ENCOUNTER 2023-10-27 18:36 | Emergency (ER) | payer OTHER, SELFPAY ==
[2023-10-27 18:48] VITALS: BP 113/69; PULSE 101; RESP 18; TEMP 36.7; O2SAT 100
[2023-10-27] MEDS: ACETAMINOPHEN 500 MG TABLET 1000 MG PO (20:25)
--- NOTE | 2023-10-27 20:32 | PC.NURSE ---
PT JUST WALKED OUT OF DEPARTMENT. DECLINED TO STAY AND WAIT FOR DR WINSTON TO INJECT HIS GUMS.
--- NOTE | 2023-10-27 20:41 | ED.GENADULT ---
HPI - General Adult General Chief complaint: Dental/Oral Stated complaint: dental pain after surgery Time Seen by Provider: 10/27/23 19:54 History of Present Illness HPI narrative: This is a 33-year-old male presenting with dental pain. He had wisdom teeth extracted several days ago. Since then his pain has uncontrolled despite taking morphine at home. Patient says they did not discharged with any pain medication. He says he cannot take Motrin due to chronic kidney disease although his kidney function on multiple visits our emergency room is normal. No fevers chills nausea diarrhea. No difficulty swallowing. Speaking full sentences. Related Data Allergies Allergy/AdvReac Type Severity Reaction Status Date / Time No Known Allergies Allergy Verified 10/27/23 18:36 PMF Past Medical History Medical History EtOH dependence Healthy adult male Surgical History Surgical History No history of previous surgery Exam Narrative: APPEARANCE: No apparent distress. Head: Well-healed surgical site lower jaw without any swelling or signs of infection. no trismus. No audible stridor. Peak patient is speaking in full sentences. EYES: EOMI, NOSE: Atraumatic NECK: Trachea midline RESPIRATORY: No increased rate of breathing CARDIOVASCULAR: RRR, ABDOMINAL: Non-distended MUSCULOSKELETAl: No obvious deformities NEURO: Alert. Moving 4/4 extremities SKIN:: Warm, dry. Normal color PSYCHIATRIC: Normal affect Course Vital Signs Vital signs: Vital Signs Temperature 98.0 F 10/27/23 18:48 Pulse Rate 101 H 10/27/23 18:48 Respiratory Rate 18 10/27/23 18:48 Blood Pressure 113/69 10/27/23 18:48 Pulse Oximetry 100 10/27/23 18:48 Temperature 98.0 F 10/27/23 18:48 Pulse Rate 101 H 10/27/23 18:48 Respiratory Rate 18 10/27/23 18:48 Blood Pressure 113/69 10/27/23 18:48 Pulse Oximetry 100 10/27/23 18:48 Medical Decision Making [facility] Narrative Medical decision making narrative: -Course: 33-year-old male history of alcohol abuse chronic opiate use presenting for dental pain. Discussed non opiate related pain control and agreed to do a dental block. However the patient then eloped. Vital Signs Vital Signs: Vital Signs Temperature 98.0 F 10/27/23 18:48 Pulse Rate 101 H 10/27/23 18:48 Respiratory Rate 18 10/27/23 18:48 Blood Pressure 113/69 10/27/23 18:48 Pulse Oximetry 100 10/27/23 18:48 Temperature 98.0 F 10/27/23 18:48 Pulse Rate 101 H 10/27/23 18:48 Respiratory Rate 18 10/27/23 18:48 Blood Pressure 113/69 10/27/23 18:48 Pulse Oximetry 100 10/27/23 18:48 Discharge Plan Discharge Clinical Impression: Pain, dental, Drug-seeking behavior Patient Disposition: Elopement After Seen by Prov Condition: Stable Prescriptions: No Action aspirin 81 mg capsule 81 mg PO DAILY Qty: 30 0RF ibuprofen 800 mg tablet 800 mg PO TID PRN (Reason: pain) 7 Days Qty: 21 0RF acetaminophen 500 mg tablet 1,000 mg PO TID PRN (Reason: robin) 7 Days Qty: 42 0RF multivitamin Tablet 1 tablet PO DAILY Qty: 30 0RF famotidine [Pepcid] 20 mg tablet 20 mg PO BID 42 Days Qty: 84 0RF ondansetron 4 mg tablet,disintegrating 4 mg PO Q8H PRN (Reason: nausea and vomiting) Qty: 30 0RF ibuprofen 800 mg tablet 800 mg PO TID PRN (Reason: pain) Qty: 20 0RF acetaminophen 500 mg tablet 500 mg PO Q6H PRN (Reason: pain) Qty: 20 0RF Follow-up/Referrals: Sahil,Bernard Astorga MD [Primary Care Provider] -
== END 2023-10-27 20:32 | disposition left against medical advice (07) ==
PROVIDERS: Emergency Provider Emergency Medicine; PCP Family Medicine
DX: K08.89 Other specified disorders of teeth and supporting structures (principal); Z76.5 Malingerer [conscious simulation]
CPT/HCPCS: 99282; A9270